=== PATIENT | female | born 1990 | race Caucasian/White ===

== ENCOUNTER 2022-12-23 17:22 | Emergency (ER) | payer OTHER ==
[2022-12-23] MEDS ORDERED: Ketorolac Tromethamine 30 MG/ML VIAL ONE (20:34)
[2022-12-23] MEDS ORDERED: Morphine 4 MG/ML VIAL ONE (20:34)
== END 2022-12-23 20:50 | disposition home or self-care (01) ==
LOC: CSHERS 17:22
DX: M25.572 Pain in left ankle and joints of left foot (principal)
CPT/HCPCS: 96372; J1885; J2270

== ENCOUNTER 2023-01-20 20:20 | Emergency (ER) | payer OTHER, SELFPAY ==
[2023-01-20] MEDS ORDERED: Acetaminophen 325 MG TAB PO SCH (21:00)
[2023-01-20] MEDS ORDERED: oxyCODONE 5 MG TAB PO SCH (21:00)
[2023-01-20] MEDS ORDERED: oxyCODONE 5 MG TAB ONE (21:04)
== END 2023-01-20 22:43 | disposition home or self-care (01) ==
LOC: CSHERS 20:20
DX: M25.572 Pain in left ankle and joints of left foot (principal); F17.290 Nicotine dependence, other tobacco product, uncomplicated